=== PATIENT | female | born 1990 | race Caucasian/White ===

== ENCOUNTER 2023-10-07 10:17 | Emergency (ER) | payer OTHER ==
[~2023-10-07] VITALS: Ht 162.6 cm; Wt 87.3 kg
[2023-10-07 10:22] VITALS: TEMP 98.4
[2023-10-07] MEDS ORDERED: ACET-3385 PO (10:24)
[2023-10-07] MEDS ORDERED: KETOROLAC TROMETHAMINE 30 MG/ML VIAL IVP ONE (13:30)
[2023-10-07] MEDS ORDERED: LIDOCAINE 5% TRANSDERMAL PATCH TD ONE (13:30)
[2023-10-07] MEDS ORDERED: KETOROLAC TROMETHAMINE 30 MG/ML VIAL IM ONE (13:45)
[2023-10-07 15:10] VITALS: BP 149/89; PULSE 85; RESP 18
== END 2023-10-07 15:33 | disposition home or self-care (01) ==
LOC: EMS 10:17
DX: M54.16 Radiculopathy, lumbar region (principal); M79.602 Pain in left arm; F41.9 Anxiety disorder, unspecified
CPT/HCPCS: 99283; 96372; J1885

== ENCOUNTER 2023-11-01 10:52 | Emergency (ER) | payer OTHER ==
[~2023-11-01] VITALS: Ht 162.6 cm; Wt 86.4 kg
[~2023-11-01 10:52] MED LIST: ACET-3385 PO
[2023-11-01 10:55] VITALS: BP 133/88; PULSE 80; RESP 18; TEMP 98
[2023-11-01] MEDS ORDERED: GABA-1181 PO (13:09)
[2023-11-01] MEDS ORDERED: MELO-106 PO (13:09)
[2023-11-01] MEDS ORDERED: KETOROLAC TROMETHAMINE 30 MG/ML VIAL IVP ONE (13:15)
[2023-11-01] MEDS ORDERED: METHOCARBAMOL 500 MG TABLET PO ONE (13:15)
[2023-11-01] MEDS ORDERED: HYDR-4723 PO (13:26)
[2023-11-01] MEDS ORDERED: METH-659 PO (13:26)
== END 2023-11-01 13:43 | disposition home or self-care (01) ==
LOC: EMS 10:52
DX: G89.29 Other chronic pain (principal); M54.50 Low back pain, unspecified; F41.9 Anxiety disorder, unspecified
CPT/HCPCS: 99283; 96374; J1885